=== PATIENT | male | born 1950 | race Two or more races ===

== ENCOUNTER 2023-10-22 09:15 | Outpatient (CLI) | payer OTHER | END 2023-10-22 09:29 | disposition home or self-care (01) | LOC: TOM 09:15 | DX: R19.4 Change in bowel habit (principal); D50.0 Iron deficiency anemia secondary to blood loss (chronic); R63.4 Abnormal weight loss ==

== ENCOUNTER 2024-06-30 07:40 | Outpatient (CLI) | payer OTHER | END 2024-06-30 07:41 | disposition home or self-care (01) | LOC: NUCLEAR 07:40 | DX: K21.9 Gastro-esophageal reflux disease without esophagitis (principal); R10.13 Epigastric pain; K11.1 Hypertrophy of salivary gland | CPT/HCPCS: 78264; A9541 ==